=== PATIENT | female | born 1985 | race Caucasian/White ===

== ENCOUNTER 2023-12-05 13:52 | Outpatient (OUT) | payer OTHER, SELFPAY ==
[2023-12-06 05:07] LABS: HBsAg Screen Negative (Negative)
== END 2023-12-05 13:53 | disposition home or self-care (01) ==
PROVIDERS: Visit Provider Nurse Practitioner
DX: Z20.2 Contact with and (suspected) exposure to infections with a predominantly sexual mode of transmission (principal)
CPT/HCPCS: 36415; 87340

== ENCOUNTER 2024-08-31 09:47 | Outpatient (OUT) | payer OTHER, SELFPAY ==
[2024-08-31 10:15] LABS: Basophils Percent Auto 0.5 % (0.2-2.0); Eosinophils Percent Auto 0.9 % (0.9-7.0); Hematocrit 38.7 % (36.0-48.0); Hemoglobin 12.7 g/dL (12.0-16.0); Immature Granulocytes Abs Auto 0.01 10^3/uL (0.00-0.03); Immature Granulocytes Pct Auto 0.2 % (0.0-0.5); Lymphocytes Absolute Auto 2.1 10^3/uL (1.2-3.8); Lymphocytes Percent Auto 47.9 % (20.5-60.0); Mean Corpuscular HGB Conc 32.8 g/dL (29.9-35.2); Mean Corpuscular Hemoglobin 30.8 pg (26.7-34.0); Mean Corpuscular Volume 93.9 fL (81.0-99.0); Mean Platelet Volume 10.1 fL (9.5-13.5); Monocytes Absolute Auto 0.3 10^3/uL (0.3-0.8); Monocytes Percent Auto 6.5 % (1.7-12.0); Platelet Count 233 10^3/uL (150-450); Red Blood Count 4.12 10^6/uL (4.20-5.40); Red Cell Distribution Width 12.9 % (11.0-15.0); White Blood Count 4.4 10^3/uL (4.0-11.0)
[2024-08-31 10:34] LABS: INR 1.06; Partial Thromboplastin Time 27.9 sec (22.3-36.2); Prothrombin Time 11.2 sec (9.0-11.6)
[2024-08-31 10:46] LABS: Percent Iron Saturation 48.4 %
[2024-08-31 10:56] LABS: BUN Creatinine Ratio 13.1; Calcium 9.2 mg/dL (8.5-10.1); Carbon Dioxide 27.2 mmol/L (21.0-32.0); Chloride 105 mmol/L (98-107); Chol HDL Ratio 1.7; Cholesterol 137 mg/dL (<=200); Estimated GFR (African America >60 (>=60 mL/min/1.73m^2); Estimated GFR (Non-African Ame >60 (>=60 mL/min/1.73m^2); Glucose 84 mg/dL (74-106); HDL Cholesterol 79 mg/dL (40-60); Potassium 4.2 mmol/L (3.5-5.1); Sodium 140 mmol/L (136-145); Thyroid Stimulating Hormone 2.167 uIU/mL (0.358-3.740); Triglycerides 51 mg/dL (<=150); VLDL CHOLESTEROL 10.2 mg/dL
== END 2024-08-31 09:48 | disposition home or self-care (01) ==
LOC: LAB 09:51
PROVIDERS: PCP Nurse Practitioner; Visit Provider Nurse Practitioner
DX: Z00.00 Encounter for general adult medical examination without abnormal findings (principal); D64.9 Anemia, unspecified
CPT/HCPCS: 36415; 80048; 80061; 82728; 83540; 83550; 84443; 85025; 85610; 85730

== ENCOUNTER 2024-10-23 10:33 | Outpatient (OUT) | payer OTHER, SELFPAY ==
--- OUTSIDE RECORDS SUMMARY | 2024-10-23 10:37 | XMS_ITS | CCD ---
Author Organization [facility] Care Team Providers Care Laboratory Chemical Assistant Name Role Phone FRANCOIS, DR DAVID Gregg Primary Care Unavailable FRANCOIS, DR DAVID Gregg Admitting Unavailable FRANCOIS, DR DAVID Gregg Attending Unavailable FRANCOIS, DR DAVID Gregg Consulting Unavailable ADRIANNE COPPOLA Attending Unavailable ANAT, ADRIANNE Consulting Unavailable ADRIANNE COPPOLA Admitting Unavailable FRANCOIS, DR DAVID Gregg Primary Care Unavailable CAITLYN PRICE Consulting Unavailable PIPE JEWELL Consulting Unavailable FRANCOIS, DR DAVID Gregg Admitting Unavailable FRANCOIS, DR DAVID Gregg Attending Unavailable FRANCOIS, DR DAVID Gregg Consulting Unavailable FRANCOIS, DR DAVID Gregg Primary Care Unavailable ALIVIA, DR PIPE Gibbons Consulting Unavailable FRANCOIS, DR DAVID Gregg Primary Care Unavailable FRANCOIS, DR DAVID Gregg Admitting Unavailable FRANCOIS, DR DAVID Gregg Attending Unavailable FRANCOIS, DR DAVID Gregg Consulting Unavailable FRANCOIS, DR DAVID Gregg Primary Care Unavailable FRANCOIS, DR DAVID Gregg Admitting Unavailable FRANCOIS, DR DAVID Gregg Attending Unavailable FRANCOIS, DR DAVID Gregg Consulting Unavailable Allergies Allergy Classification Reported Allergen(s) Allergy Type Date of Onset Reaction(s) Facility (1 source) Amoxicillin Drug Allergy 1985 [facility] Rep[facility] (1 source) Penicillins Drug allergy (disorder) 1985 [facility] Rep[facility] Problems Active Problems Problem Classification Problem Date Documented Date Episodic/Chronic Anxiety disorders (1 source) Anxiety disorder, unspecified; Translations: [ANXIETY DISORDER UNSPECIFIED] Onset: 02-21-2022 Chronic Developmental disorders (1 source) Severe intellectual disabilities; Translations: [SEVERE INTELLECTUAL DISABILITIES] Onset: 02-21-2022 Chronic Disorders usually diagnosed in infancy, childhood, or adolescence (1 source) Autistic disorder; Translations: [AUTISTIC DISORDER] Onset: 02-21-2022 Chronic Genitourinary symptoms and ill-defined conditions (4 sources) Unspecified urinary incontinence; Translations: [UNSPECIFIED URINARY INCONTINENCE] Onset: 02-21-2022 Chronic Malaise and fatigue (1 source) Other fatigue; Translations: [OTHER FATIGUE] Onset: 02-25-2022 Episodic Nephritis; nephrosis; renal sclerosis (4 sources) 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; Translations: [ISOL PROTEINURIA W/DIFF ENDOCAP PGN] Onset: 03-16-2022 Chronic Other congenital anomalies (4 sources) Chromosomal abnormality, unspecified; Translations: [CHROMOSOMAL ABNORMALITY UNSPECIFIED] Onset: 02-15-2022 Chronic Other non-traumatic joint disorders (1 source) Pain in unspecified joint; Translations: [PAIN IN UNSPECIFIED JOINT] Onset: 02-25-2022 Episodic Past or Other Problems Problem Classification Problem Date Documented Date Episodic/Chronic Other nervous system disorders (4 sources) Unspecified abnormalities of gait and mobility; Translations: [UNS ABNORMALITIES GAIT AND MOBILITY] Onset: 12-07-2021 Episodic Other nervous system disorders (4 sources) Other abnormalities of gait and mobility; Translations: [OTHER ABNORMALITIES GAIT AND MOBILITY] Onset: 11-26-2021 Episodic Results Test Name Value Interpretation Reference Range Facil ity CRPon 03-16-2022 CRP 0.8 mg/dL Normal <=1.0 [facility] Comment on above: Performed By: #### U MICRO, UARMICR #### [facility] Laboratory [address] [address] [address] Rosalind Allred CULTURE URINEon 02-23-2022 CULTURE URINE Isolate 1 Escherichia coli >100,000 cfu/ml of ORGANISM 1 Escherichia coli ANTIBIOTIC M.I.C RX STATUS Ampicillin >=32 R F Ampicillin/Sulbactam 16 I F Piperacillin/Tazobact am <=4 S F Cefazolin <=4 S F Ceftazidime <=1 S F Ceftriaxone <=1 S F Ertapenem <=0.5 S F Imipenem <=0.25 S F Amikacin <=2 S F Gentamicin <=1 S F Tobramycin <=1 S F Ciprofloxacin >=4 R F Levofloxacin >=8 R F Nitrofurantoin <=16 S F Trimethoprim/Sulfamet hoxazole <=20 S F Normal [facility] Comment on above: Performed By: #### U RCX #### [facility] Laboratory [address] [address] [address] Rosalind Allred RHEUMATOID FACTORon 02-23-20 22 RA Latex Turbid. 14.8 IU/mL Critically high <14.0 [facility] Comment on above: Performed By: #### U MICRO, UARMICR #### [facility] Laboratory [address] [place] [address] Dr. Rosalind Allred UA (CLEAN/CATCH) MICROSCOPIC IF INDICATEon 02-21-2022 Bilirubin Ql (U) Negative Normal NEGATIVE [facility] Comment on above: Performed By: #### U MICRO, UARMICR #### [facility] Laboratory [address] [place] [address] Dr. Rosalind Allred Clarity (U) CLEAR Normal CLEAR [facility] Comment on above: Performed By: #### U MICRO, UARMICR #### [facility] Laboratory [address] [place] [address] Dr. Rosalind Allred Color (U) YELLOW Normal YELLOW [facility] Comment on above: Performed By: #### U MICRO, UARMICR #### [facility] Laboratory [address] [place] [address] Dr. Rosalind Allred Glucose Ql (U) 250 mg/dl Abnormal NEGATIVE [facility] Comment on above: Performed By: #### U MICRO, UARMICR #### [facility] [address] [place] [address] Dr. Rosalind Allred Hemoglobin Ql (U) TRACE-INTACT Abnormal NEGATIVE [facility] Comment on above: Performed By: #### U MICRO, UARMICR #### [facility] [address] [place] [address] Dr. Rosalind Allred Ketones Ql (U) 15 mg/dl Abnormal NEGATIVE [facility] Comment on above: Performed By: #### U MICRO, UARMICR #### [facility] [address] [place] [address] Dr. Rosalind Allred LEUKOCYTES Negative Normal NEGATIVE [facility] Comment on above: Performed By: #### U MICRO, UARMICR #### [facility] [address] [place] [address] Dr. Rosalind Allred Nitrite Ql (U) Positive Abnormal NEGATIVE [facility] Comment on above: Performed By: #### U MICRO, UARMICR #### [facility] [address] [address] [address] Rosalind Allred pH (U) 5.5 [pH] Normal 5-9 [facility] Comment on above: Performed By: #### U MICRO, UARMICR #### [facility] [address] [address] [address] Rosalind Allred SPEC GRAVITY >=1.030 Abnormal 1.005-<=1.025 [facility] Comment on above: Performed By: #### U MICRO, UARMICR #### [facility] [address] [place] [address] Dr. Rosalind Allred UA PROTEIN 30 mg/dl Abnormal NEGATIVE/ TRACE [facility] Comment on above: Performed By: #### U MICRO, UARMICR #### [facility] [address] [place] [address] Dr. Rosalind Allred UR MICRO IND INDICATED Normal [facility] Comment on above: Performed By: #### U MICRO, UARMICR #### [facility] [address] [place] [address] Dr. Rosalind Allred Urobilinogen Qn (U) 0.2 {Jc'U}/dL Normal 0.2 - 1. 0 [facility] Comment on above: Performed By: #### U MICRO, UARMICR #### [facility] [address] [place] [address] Dr. Rosalind Allred URINE MICROSCOPIC ONLYon BACTERIA MODERATE Abnormal NONE SEEN [facility] Comment on above: Performed By: #### U MICRO, UARMICR #### [facility] [address] [place] [address] Dr. Rosalind Allred Bacteria identified Cx Nom (U) CX ALREADY ORDERED Normal [facility] Comment on above: Performed By: #### U MICRO, UARMICR #### [facility] [address] [place] [address] Dr. Rosalind Allred CAST SEEN Abnormal NONE SEEN [facility] Comment on above: Performed By: #### U MICRO, UARMICR #### [facility] [address] [place] [address] Dr. Rosalind Allred Crystals LM Nom (Urine sed) NONE SEEN Normal NONE SEEN [facility] Comment on above: Performed By: #### U MICRO, UARMICR #### [facility] [address] [place] [address] Dr. Rosalind Allred Epithelial cells LM Ql (Urine sed) MANY Abnormal NONE SEEN /RARE [facility] Comment on above: Performed By: #### U MICRO, UARMICR #### [facility] [address] [place] [address] Dr. Rosalind Allred HYALINE CAST FEW Normal [facility] Comment on above: Performed By: #### U MICRO, UARMICR #### [facility] [address] [place] [address] Dr. Rosalind Allred MUCOUS TRACE Abnormal NONE SEEN [facility] Comment on above: Performed By: #### U MICRO, UARMICR #### [facility] [address] [place] [address] Dr. Rosalind Allred RBC 0-2 Normal 0-2 [facility] Comment on above: Performed By: #### U MICRO, UARMICR #### [facility] [address] [place] [address] Dr. Rosalind Allred WBC 2-5 Abnormal NONE SEEN [facility] Comment on above: Performed By: #### U MICRO, UARMICR #### [facility] [address] [place] [address] Dr. Rosalind Allred CBC AUTO DIFFon 02-15-2022 BASO # 0.0 103/ul Normal 0.0-0.1 [facility] Comment on above: Performed By: #### U MICRO, UARMICR #### [facility] [address] [place] [address] Dr. Rosalind Allred Basophils/100 WBC (Bld) 0.2 % Normal 0.2-2.0 [facility] Comment on above: Performed By: #### U MICRO, UARMICR #### [facility] [address] [place] [address] Dr. Rosalind Allred EO # 0.0 103/ul Normal 0.0-0.7 [facility] Comment on above: Performed By: #### U MICRO, UARMICR #### [facility] [address] [place] [address] Dr. Rosalind Allred Eosinophils/100 WBC (Bld) 0.4 % Critically low 0.9-7.0 [facility] Comment on above: Performed By: #### U MICRO, UARMICR #### [facility] [address] [place] [address] Dr. Rosalind Allred Erythrocyte distribution width (RBC) [Ratio] 13.9 % Normal 11.0-15.0 [facility] Comment on above: Performed By: #### U MICRO, UARMICR #### [facility] [address] [place] [address] Dr. Rosalind Allred Hematocrit (Bld) [Volume fraction] 34.5 % Critically low 36.0-48.0 [facility] Comment on above: Performed By: #### U MICRO, UARMICR #### [facility] [address] [place] [address] Dr. Rosalind Allred Hemoglobin (Bld) [Mass/Vol] 11.3 g/dL Critically low 12.0-16.0 [facility] Comment on above: Performed By: #### U MICRO, UARMICR #### [facility] [address] [place] [address] Dr. Rosalind Allred IG # 0.05 10e3/ul Critically high 0.00-0.03 [facility] Comment on above: Performed By: #### U MICRO, UARMICR #### [facility] [address] [place] [address] Dr. Rosalind Allred IG % 0.5 % Normal 0.0-0.5 [facility] Comment on above: Performed By: #### U MICRO, UARMICR #### [facility] [address] [place] [address] Dr. Rosalind Allred LYMPH # 1.9 103/ul Normal 1.2-3.8 [facility] Comment on above: Performed By: #### U MICRO, UARMICR #### [facility] [address] [address] [address] Rosalind Allred Lymphocytes/100 WBC (Bld) 17.9 % Critically low 20.5-60.0 [facility] Comment on above: Performed By: #### U MICRO, UARMICR #### [facility] [address] [place] [address] Dr. Rosalind Allred MANUAL DIFF REQ NO Normal [facility] Comment on above: Performed By: #### U MICRO, UARMICR #### [facility] [address] [place] [address] Dr. Rosalind Allred MCH (RBC) [Entitic mass] 30.2 pg Normal 26.7-34.0 [facility] Comment on above: Performed By: #### U MICRO, UARMICR #### [facility] [address] [place] [address] Dr. Rosalind Allred MCHC (RBC) [Mass/Vol] 32.8 g/dL Normal 29.9-35.2 [facility] Comment on above: Performed By: #### U MICRO, UARMICR #### [facility] [address] [place] [address] Dr. Rosalind Allred MCV (RBC) [Entitic vol] 92.2 fL Normal 81.0-99.0 [facility] Comment on above: Performed By: #### U MICRO, UARMICR #### [facility] [address] [place] [address] Dr. Rosalind Allred MONO # 0.9 103/ul Critically high 0.3-0.8 [facility] Comment on above: Performed By: #### U MICRO, UARMICR #### [facility] [address] [place] [address] Dr. Rosalind Allred Monocytes/100 WBC (Bld) 8.7 % Normal 1.7-12.0 [facility] Comment on above: Performed By: #### U MICRO, UARMICR #### [facility] [address] [place] [address] Dr. Rosalind Allred NEUT # 7.5 103/ul Critically high 1.4-6.5 [facility] Comment on above: Performed By: #### U MICRO, UARMICR #### [facility] [address] [address] [address] Rosalind Allred Neutrophils/100 WBC (Bld) 72.3 % Normal 43.0-75.0 [facility] Comment on above: Performed By: #### U MICRO, UARMICR #### [facility] [address] [address] [address] Rosalind Allred Platelet mean volume (Bld) [Entitic vol] 9.5 fL Normal 9.5-13.5 [facility] Comment on above: Performed By: #### U MICRO, UARMICR #### [facility] [address] [place] [address] Dr. Rosalind Allred PLT 219 103/ul Normal 150-450 [facility] Comment on above: Performed By: #### U MICRO, UARMICR #### [facility] [address] [address] [address] Rosalind Allred RBC 3.74 106/ul Critically low 4.20-5.40 [facility] Comment on above: Performed By: #### U MICRO, UARMICR #### [facility] [address] [address] [address] Rosalind Allred WBC 10.3 103/ul Normal 4.0-11.0 [facility] Comment on above: Performed By: #### U MICRO, UARMICR #### [facility] [address] [place] [address] Dr. Rosalind Allred CRPon 02-15-2022 CRP 7.9 mg/dL Critically high <=1.0 [facility] Comment on above: Performed By: #### U MICRO, UARMICR #### [facility] [address] [address] [address] Rosalind Allred PROF 14(COMP METB)on 022 Albumin [Mass/Vol] 3.3 g/dL Critically low 3.4-5.0 [facility] Comment on above: Performed By: #### T SH, CRP, CMP #### [facility] [address] [address] [address] Rosalind Allred Albumin/Globulin [Mass ratio] 0.9 {ratio} Normal [facility] Comment on above: Performed By: #### T SH, CRP, CMP #### [facility] [address] [address] [address] Rosalind Allred ALP [Catalytic activity/Vol] 80 U/L Normal 46-116 [facility] Comment on above: Performed By: #### T SH, CRP, CMP #### [facility] [address] [place] [address] Dr. Rosalind Allred ALT [Catalytic activity/Vol] 25 U/L Normal 14-59 [facility] Comment on above: Performed By: #### T SH, CRP, CMP #### [facility] [address] [place] [address] Dr. Rosalind Allred Anion gap [Moles/Vol] 13.8 mmol/L Normal [facility] Comment on above: Performed By: #### T SH, CRP, CMP #### [facility] [address] [place] [address] Dr. Rosalind Allred AST [Catalytic activity/Vol] 11 U/L Critically low 15-37 [facility] Comment on above: Performed By: #### T SH, CRP, CMP #### [facility] [address] [place] [address] Dr. Rosalind Allred Bilirubin [Mass/Vol] 0.3 mg/dL Normal 0.2-1.0 [facility] Comment on above: Performed By: #### T SH, CRP, CMP #### [facility] [address] [place] [address] Dr. Rosalind Allred Calcium [Mass/Vol] 8.8 mg/dL Normal 8.5-10.1 [facility] Comment on above: Performed By: #### T SH, CRP, CMP #### [facility] [address] [place] [address] Dr. Rosalind Allred Chloride [Moles/Vol] 104 mmol/L Normal 98-107 [facility] Comment on above: Performed By: #### T SH, CRP, CMP #### [facility] [address] [place] [address] Dr. Rosalind Allred CO2 [Moles/Vol] 24.9 mmol/L Normal 21.0-32.[address] [facility] Comment on above: Performed By: #### T SH, CRP, CMP #### [facility] [address] [address] [address] Rosalind Allred Creatinine [Mass/Vol] 0.41 mg/dL Critically low 0.55-1.02 [facility] Comment on above: Performed By: #### T SH, CRP, CMP #### [facility] [address] [place] [address] Dr. Rosalind Allred EGFR-AF CITIZEN OF [place] >60 Normal >=[address] [facility] Comment on above: Performed By: #### T SH, CRP, CMP #### [facility] [address] [place] [address] Dr. Rosalind Allred EGFR-NON AF CITIZEN OF [place] >60 Normal >=60 [facility] Comment on above: Performed By: #### T SH, CRP, CMP #### [facility] [address] [place] [address] Dr. Rosalind Allred Globulin (S) [Mass/Vol] 3.7 g/dL Normal [facility] Comment on above: Performed By: #### T SH, CRP, CMP #### [facility] [address] [place] [address] Dr. Rosalind Allred Glucose [Mass/Vol] 86 mg/dL Normal 74-106 [facility] Comment on above: Performed By: #### T SH, CRP, CMP #### [facility] [address] [place] [address] Dr. Rosalind Allred Potassium [Moles/Vol] 3.7 mmol/L Normal 3.5-5.1 [facility] Comment on above: Performed By: #### T SH, CRP, CMP #### [facility] [address] [place] [address] Dr. Rosalind Allred Protein [Mass/Vol] 7.0 g/dL Normal 6.4-8.2 [facility] Comment on above: Performed By: #### T DAVID CRP, CMP #### [facility] [address] [place] [address] Dr. Rosalind Allred Sodium [Moles/Vol] 139 mmol/L Normal 136-145 [facility] Comment on above: Performed By: #### T DAVID CRP, CMP #### [facility] [address] [place] [address] Dr. Rosalind Allred Urea nitrogen [Mass/Vol] 9.0 mg/dL Normal 7.0-18.0 [facility] Comment on above: Performed By: #### T DAVID CRP, CMP #### [facility] [address] [place] [address] Dr. Rosalind Allred Urea nitrogen/Creatinine [Mass ratio] 22.0 mg/mg Normal [facility] Comment on above: Performed By: #### T DAVID CRP, CMP #### [facility] [address] [place] [address] Dr. Rosalind Allred TSHon 02-15-2022 TSH 1.373 uIU/mL Normal 0.358-3.740 [facility] Comment on above: Performed By: #### T DAVID CRP, CMP #### [facility] [address] [place] [address] Dr. Rosalind Allred TSH RANGE SEE BELOW Normal [facility] Comment on above: Result Comment: <0.3 4 UIU/ml HYPERTHYROID 0.34-5.60 UIU/ml EUTHYROID >5.60 UIU/ml HYPOTHYROID Performed By: #### T DAVID CRP, CMP #### [facility] [address] [place] [address] Dr. Rosalind Allred NM BONE SCAN LIMITon 022 NM BONE SCAN LIMIT EXAMINATION: NM BONE SCAN LIMIT HISTORY: Frontal gait disorder COMPARISON: No relevant comparison available. TECHNIQUE: After obtaining the patient's consent, 24.3 mCi Tc-99m MDP was injected intravenously. Images were obtained approximately three hours later. FINDINGS: REGION IMAGED: Whole body excluding the head ABNORMALITIES: Moderately dilated urinary bladder. Single area of increased activity identified in the mid left inferior pubic ramus OTHER: Negative. IMPRESSION: Small area of increased activity inferior left pubic ramus. Consider a fracture Moderate distention of the urinary bladder despite the patient having voided just before the procedure, clinically correlate to exclude bladder dysfunction or outlet obstruction. Electronically authenticated by: PIPE BUNCH Date: 2021-12-07 16:11 Normal [facility] XR ANKLE RT MIN 3 VIEWSon XR ANKLE RT MIN 3 VIEWS EXAM: XR TIB_FIB RT 2V, XR ANKLE RT MIN 3 VIEWS, XR FOOT RT MIN 3 VIEWS HISTORY: Swelling and redness COMPARISON: None. TECHNIQUE: 2 views of the tibia and fibula 3 views of the ankle and 2 views of the foot FINDINGS: Questionable lateral ankle soft tissue edema. No visualized fracture, dislocation or subluxation. Mid foot sag. Poorly evaluated irregularity of the talocrural articulation on the lateral views are presented. Lateral angulation of the phalanges. Short fourth metatarsal, a normal anatomic variant. 10 and 2 mm plantar soft tissue calcifications beneath the first proximal phalanx IMPRESSION: Questionable lateral ankle soft tissue edema. No visualized acute osseous abnormality. Mid foot sag. Plantar soft tissue calcification beneath the first proximal phalanx Electronically authenticated by: PIPE JEWELL Date: 2021-11-26 20:05 Normal [facility] XR HIPS JOE 5V W PELVISon XR HIPS JOE 5V W PELVIS XR HIPS JOE 5V W PELVIS: HISTORY: Pain Pain COMPARISON: None available. TECHNIQUE: 5 radiographic view(s) obtained. FINDINGS: BONES/JOINT SPACES: No definitive acute fracture or dislocations are identified in either hip or bony pelvis. The joint spaces are well-maintained. Pelvic ring structures are maintained. SOFT TISSUES: The soft tissues are unremarkable. IMPRESSION: No definitive acute osseous injury of the bony pelvis or either hip. Electronically authenticated by: CAITLYN PRICE Date: 2021-11-26 21:20 Normal [facility] Encounters Encounter Date Encounter Type Care Provider Facility Start: 03-16-2022 End: 03-17-[address] DAVID PARRISH Facility:[facility] Start: 02-21-2022 End: 02-22-[address] DAVID PARRISH Facility:[facility] Start: 02-15-2022 End: 02-16-[address] DAVID PARRISH Facility:[facility] Start: 12-07-2021 End: 12-08-[address] DAVID PARRISH Facility:[facility] Start: 11-26-2021 End: 11-27-2021 ambulatory ADRIANNE COPPOLA Facility:[facility] Payers Date Payer Category Payer Unknown [id number] 2.16.84 [id number] 1985 Unknown [id number] 2.16.84 [id number] 1985 Unknown [id number] 2.16.84 [id number] 1985 Unknown [id number] 2.16.84 [id number] 1985 Unknown [id number] 2.16.84 [id number] 1959 Unknown [id number] Summary Purpose Family History No Family History Records Found Advance Directives No Advanced Directives Records Found Additional Source Comments INFORMATION SOURCE (unrecogn ized section and content) DATE CREATED AUTHOR 03/19/2022 [facility] FOR RECORDS PERTAINING TO PATIENTS WHO ARE OR HAVE BEEN ENROLLED IN A CHEMICAL DEPENDENCY/SUBSTANCEABUSE PROGRAM, SOME INFORMATION MAY BE OMITTED. This clinical summary was aggregated from multiple sources. Caution should be exercised in using it in the provision of clinical care. This summary normalizes information from multiple sources, and as a consequence, information in this document may materially change the coding, format and clinical context of patient data. In addition, data may be omitted in some cases. CLINICAL DECISIONS SHOULD BE BASED ON THE PRIMARY CLINICAL RECORDS. [facility] [email or web address] [facility]. provides no warranty or guarantee of the accuracy or completeness of information in this document.
[2024-10-24 08:10] LABS: Vitamin B12 221 pg/mL (232-1245)
== END 2024-10-23 10:34 | disposition home or self-care (01) ==
LOC: LAB 10:34
PROVIDERS: PCP Nurse Practitioner; Visit Provider Nurse Practitioner
DX: R53.1 Weakness (principal); R53.83 Other fatigue
CPT/HCPCS: 36415; 82306; 82607

== ENCOUNTER 2024-10-30 09:10 | Outpatient (RCR) | payer OTHER, SELFPAY | END 2024-12-05 07:13 | disposition home or self-care (01) | LOC: PT 09:10 | PROVIDERS: PCP Nurse Practitioner; Visit Provider Nurse Practitioner | DX: M25.562 Pain in left knee (principal); Z68.1 Body mass index [BMI] 19.9 or less, adult; R26.89 Other abnormalities of gait and mobility; M25.561 Pain in right knee | CPT/HCPCS: 97110; 97162 ==

== ENCOUNTER 2025-09-05 09:46 | Outpatient (OUT) | payer OTHER, SELFPAY ==
--- OUTSIDE RECORDS SUMMARY | 2024-08-13 06:30 | XMS_ITS ---
Author Organization [facility] Address [address] [place] [address] [address] [place] [place] [address] Care Team Providers Care Hearing Aid Fitter Name Role Phone Britton Carlson Unavailable [phone] Nola Aguilar Unavailable Unavailable REASON FOR VISIT rfc Encounters Encounter Location Date Provider Diagnosis [facility] [address] [place] [address] [place] [address] 08/13/2024 Britton Carlson Plan Of Treatment Next Appt Details Provider Name:Britton silveira, 11/28/2025 10:15:00 AM, [address] [place] [address] Dr [address], [address], [place], [address], Progress Notes * Yasmine ROTHMAN NDOB:[birth year] (40 yo F)Acc No.[id number]:08/13/2024 Patient:?Yasmine Rothman :?SAMANTHA MarceloMDOB:1985???Age:39 Y???Sex: FemaleDate:4Phone:[phone]:[address] [place], [place] [phone] Subjective: * Chief Complaints: * R fc * Electronic signature of Britton Carlson DPM on 09/05/2025 at 09:50 AM ESTSign off status: Pending * Provider: Tgire Carlson DPM Date: 10/13/2023 Generated for Printing/Faxing/eTransmitting on:?09/05/2025 09:50 AM EST
--- OUTSIDE RECORDS SUMMARY | 2025-08-29 05:00 | XMS_ITS ---
Author Organization [facility] Address [address] [place] [address] [place] [address] Care Team Providers Care Junk Removal Specialist Name Role Phone Britton Carlson Unavailable [phone] Nola Aguilar Unavailable Unavailable Allergies Allergen (clinical drug ingredient) Drug/Non Drug Allergy documented on EMR Reaction Allergy Type Onset Date Status amoxicillin Amoxicillin hives Drug Allergy ActivepenicillaminePenicillaminehivesDrug AllergyActive REASON FOR VISIT rfc Medications Medication SIG (Take, Route, Frequency, Duration) Notes Start Date End Date Status Depo-Provera ActiveSelenium Sulfide 2.25 % Shampoo1 application to scalp ExternallyActive AcetaminophenprnActiveLoratadine 10 MG Tablet1 tablet Orally Once a dayprnActive ibuprofenprnActive Social History Social History Social HistorySocial InfoQuestionAnswerNotesalcoholDo you use alcohol?Does not drink alcohol Encounters Encounter Location Date Provider Diagnosis [facility] [address] [place] [address] [place] [address] 08/29/2025 Britton Carlson Pain in right foot M79.671 ; Pain in right toe(s) M79.674 ; Pain in left toe(s) M79.675 and Tinea unguium B35.1 Assessments Encounter Date Diagnosis (ICD Code) Assessment Notes Treatment Notes Treatment Clinical Notes Section Notes 08/29/2025 Pain in right foot (ICD-10 - M79 .671) 08/29/2025Pain in right toe(s) (ICD-10 - M79.674)08/29/2025Pain in left toe(s) (ICD-10 - M79.675)08/29/2025Tinea unguium (ICD-10 - B35.1) Plan Of Treatment Next Appt Details Follow Up: 3 Months, Reason: rfc Provider Name:Britton silveira, 11/28/2025 10:15:00 AM, [address] [place], [address], [place], [address], Procedure Notes * CategorySub-CategoryDetailNotesDebridement of ToenailsManuallydebrided nails 1-5 left and 2-5 right in thickness and in lengthMechanicallydebrided nails 1- 5 left and 2-5 right in thickness and in length with a dremel History and Physical Notes * HPI (History of Present Illness) CategorySub-CategoryDetailNotesCategory NotesRight Cherise is a 40 y/o female who presetns to have her toenails trimmed. Pt. last saw VLAD Aguilar on 02/27/2025. Examination CategorySub-CategoryDetailNotesCategory NotesVascularDorsalis Pedis Pulse2/4 palpable bilateralPosterior Tibial Pulse2/4 palpable bilateralCapillary Refill< 3 seconds digits 1-5 bilateral bilateralTemperature Gradientwarm to warm from tibial tuberosity to dorsum of foot bilateralEdemanone bilateral foot Varicositiesabsent bilateral feet legsHair growthmoderate bilateral feet NeurologicDeep Tendon ReflexAll epicrietic sensation intact bilateral feet. DermatologicSkinintegrity is within normal limits with no breakdown or ulcerations noted bilateral footNail Pathologydigital nails 1-5 left and digital nail 2 digital nail 3 digital nail 4 digital nail 5 right is yellow crumbly thickened elongated subungual debris and painful upon palpationOrthopedicAnkle Joint ROMnormal with no decrease in range of motion or crepitus noted bilateral Pt. has shortened 4th digit bilateral. Breachymetatarsia.STJ ROMno evidence of pain to ROM or crepitus noted bilateralLisfrancs Joint ROMnormal bilateralFirst MPJ ROMnormal ROM with no pain or crepitus noted bilateral Progress Notes * Yasmine ROTHMAN NDOB:[birth year] (40 yo F)Acc No.[id number]:08/29/2025 Patient:?Yasmine Rothman :?SAMANTHA MarceloMDOB:1985???Age:40 Y???Sex: FemaleDate:08/29/2025Phone:[phone]:[address] [address], [facility] Subjective: * Chief Complaints: * R fc * HPI: ???Right Foot:?This is a 40 y/o female who presetns to have her toenails trimmed. Pt. last saw VLAD Aguilar on 02/27/2025. * Medical History: Mentally disabled Anxiety Medical History Verified * Surgical History: Denies Past Surgical History.? * Family History: N on-Contributory.. * Social History: T obacco use P atient is a: non smoker. A lcohol D o you use alcohol? D oes not drink alcohol. Social History Verified. * Medications: T akingSelenium Sulfide 2.25 % Shampoo 1 application to scalp Externally ibuprofen , Notes to Pharmacist: prnLoratadine 10 MG Tablet 1 tablet Orally Once a day , Notes to Pharmacist: prnAcetaminophen , Notes to Pharmacist: prnDepo-Provera Medication List reviewed and reconciled with the patientTaking Selenium Sulfide 2.25 % Shampoo 1 application to scalp Externally Taking ibuprofen , Notes to Pharmacist: prnTaking Loratadine 10 MG Tablet 1 tablet Orally Once a day , Notes to Pharmacist: prnTaking Acetaminophen , Notes to Pharmacist: prnTaking Depo-Provera Medication List reviewed and reconciled with the patient * Allergies: P enicillamine: hivesAmoxicillin: hivesyesAllergies Verified. Objective: * Examination: ???Vascular: ?Dorsalis Pedis Pulse?2/4 palpable bilateral .?Posterior Tibial Pulse?2/4 palpable bilateral .?Capillary Refill?< 3 seconds digits 1-5 bilateral bilateral .?Temperature Gradient?warm to warm from tibial tuberosity to dorsum of foot bilateral .?Edema?none bilateral foot .?Varicosities?absent bilateral feet legs.?Hair growth?moderate bilateral feet.?Dermatologic: ?Skin?integrity is within normal limits with no breakdown or ulcerations noted bilateral foot .?Nail Pathology?digital nails 1-5 left and digital nail 2 digital nail 3 digital nail 4 digital nail 5 right is yellow crumbly thickened elongated subungual debris and painful upon palpation .?Neurologic: ?Deep Tendon Reflex? All epicrietic sensation intact bilateral feet. .?Orthopedic: ?Ankle Joint ROM?normal with no decrease in range of motionor crepitus noted bilateral .?STJ ROM?no evidence of pain to ROM or crepitus noted bilateral .?Lisfrancs Joint ROM?normal bilateral .?First MPJ ROM?normal ROM with no pain or crepitus noted bilateral .?Pt. has shortened 4th digit bilateral. Breachymetatarsia. Assessment: * Assessment: 1.?Pain in right foot - M79.671 (Primary)???2.?Pain in right toe(s) - M79.6 74???3.?Pain in left toe(s) - M79.675???4.?Tinea unguium - B35.1??? Plan: * Procedures: ???Debridement of Toenails:?Manually?debrided nails 1-5 left and 2-5 right in thickness and in length.?Mechanically?debrided nails 1-5 left and 2-5 right in thickness and in length with a dremel.? * Procedure Codes: 1 1721 DEBRIDE NAIL, 6 OR MORE * Follow Up: 3 Months (Reason: [facility]) Billing Information: * Procedure Codes: 87100 DEBRIDE NAIL, 6 OR MORE. * ign off status: Completed true * Provider: Tigre Carlson DPM Date: 10/30/2024 Generated for Printing/Faxing/eTransmitting on:?09/05/2025 09:51 AM EST
--- OUTSIDE RECORDS SUMMARY | 2025-09-05 09:51 | XMS_ITS | Patient Health Record ---
Author Organization [facility] Address [address] [place] [address] [place] [address] Care Team Providers Care Resource Forester Name Role Phone Britton Carlson Unavailable [phone] Nola Aguilar Unavailable Unavailable Allergies Allergen (clinical drug ingredient) Drug/Non Drug Allergy documented on EMR Reaction Allergy Type Onset Date Status amoxicillin Amoxicillin hives Drug Allergy ActivepenicillaminePenicillaminehivesDrug AllergyActive Reason For Referral No Information Medications Medication SIG (Take, Route, Frequency, Duration) Notes Start Date End Date Status Depo-Provera ActiveSelenium Sulfide 2.25 % Shampoo1 application to scalp ExternallyActive AcetaminophenprnActiveLoratadine 10 MG Tablet1 tablet Orally Once a dayprnActive ibuprofenprnActive Social History Social History Social HistorySocial InfoQuestionAnswerNotesalcoholDo you use alcohol?Does not drink alcohol Problems Problem Type SNOMED Code ICD Code Onset Dates Problem Status W/U Status Risk Notes Problem Plantar wart (43576106) Plantar wart (B07 .0) ActiveconfirmedProblemPain in right foot (912928979367705)Pain in right foot (M79.671)ActiveconfirmedProblemPain in limb (78458259)Pain in right toe(s) (M79.674)ActiveconfirmedProblemPain in limb (16896367)Pain in left toe(s) (M79.675)ActiveconfirmedProblemTinea unguium (718671170)Tinea unguium (B35.1) Activeconfirmed Vital Signs Height 61 in 05/30/2025 [id number] lbs6296ACN3404/12/2025 Encounters Encounter Location Date Provider Diagnosis [facility] [address] [place] [address] 11/18/2024 Britton Lesnak Pain in right foot M79.671 ; Pain in right toe(s) M79.674 ; Pain in left toe(s) M79.675 and Tinea unguium B35.[address] [facility] [address] [place] [address] 03/03/2025 Britton Lesnak Pain in right foot M79.671 ; Pain in right toe(s) M79.674 ; Pain in left toe(s) M79.675 and Tinea unguium B35.1 [facility] [address] [place] [address] [place] [address] 05/30/2025 Britton Lesnak Pain in right foot M79.671 ; Pain in right toe(s) M79.674 ; Pain in left toe(s) M79.675 and Tinea unguium B35.1 [facility] [address] [place] [address] [place] [address] 08/29/2025 Britton Lesnak Pain in right foot M79.671 ; Pain in right toe(s) M79.674 ; Pain in left toe(s) M79.675 and Tinea unguium B35.1 Assessments Encounter Date Diagnosis (ICD Code) Assessment Notes Treatment Notes Treatment Clinical Notes Section Notes 11/18/2024 Pain in right foot (ICD-10 - M79 .671) 05/30/2025Pain in right foot (ICD-10 - M79.671)08/29/2025Pain in right foot (ICD-10 - M79.671)03/03/2025Pain in right foot (ICD-10 - M79.671)03/03/2025Pain in right toe(s) (ICD-10 - M79.674)08/29/2025Pain in right toe(s) (ICD-10 - M79.674)05/30/2025Pain in right toe(s) (ICD-10 - M79.674)11/18/2024Pain in right toe(s) (ICD-10 - M79.674)11/18/2024Pain in left toe(s) (ICD-10 - M79.675) 05/30/2025Pain in left toe(s) (ICD-10 - M79.675)08/29/2025Pain in left toe(s) (ICD-10 - M79.675)03/03/2025Pain in left toe(s) (ICD-10 - M79.675)03/03/2025 Tinea unguium (ICD-10 - B35.1)08/29/2025Tinea unguium (ICD-10 - B35.1)05/30/2025 Tinea unguium (ICD-10 - B35.1)11/18/2024Tinea unguium (ICD-10 - B35.1) Plan Of Treatment Next Appt Details Provider Name:Britton silveira, 11/28/2025 10:15:00 AM, [facility], [address], [place], [address], Insurance Providers Payer Name Payer Address Payer Phone Subscriber Number Group Number Insured Name Patient Relationship to Insured Coverage Start Date Coverage End Date [facility] [address] [place] [address] [id number], MackenzieSelf - patient is the insured Medical (General) History Medical History History ICD Code mentally disabled anxietySurgical History Surgery Date(Month/Year)
--- OUTSIDE RECORDS SUMMARY | 2025-09-05 09:51 | XMS_ITS | Clinical Summary ---
Author Organization [facility] Address [address] [facility] [place] [address] Care Team Providers Care E Learning Coordinator Name Role Phone Unavailable Primary Care Provider Unavailabl e Source Comments The following information is NOT included in Care Everywhere downloads:Psychiatric notes, ECG results, Cardiac Rehab notes, Pulmonary Function notes, data from SmartForms (includes but not limited toPregnancy data,audiograms, eye exams, pre-surgical evaluation notes, well-child exam data).[facility] Social History Tobacco UseTypesPacks/DayYears UsedDateSmoking Tobacco: Never Assessed CommentsUnknownSex and Gender InformationValueDate RecordedSex Assigned at Not on fileLegal IqfSksiod74/16/2024 2:15 PM EDTGender IdentityNot on fileSexual OrientationNot on file Plan of Treatment Health MaintenanceDue DateLast DoneCommentsHIV Test2000Hepatitis C Ervrmaey54/30/2003Tdap Glrbmma8705/17/2003Hepatitis A (HAV) Vaccine (optional start 19+ years)2004Hepatitis B (HBV) Vaccine (1 of 3 - 19+ 3-dose series) 2004Pap Smear2006HPV Vaccine (optional start 27-45 years)2012 Goonrzsrcei30/30/2025OVID-19 Vaccine (3 - 2024-26 season)502/09/2020, 09/21/2020Influenza Vaccine (#1)2025Shingles (RZV) Vaccine (1 of 2) 2035Pneumococcal Vaccine(s)Aged OutNo longer eligible based on patient's age to complete this topic Insurance
[2025-09-05 10:12] LABS: Hematocrit 39.2 % (36.0-48.0); Hemoglobin 12.8 g/dL (12.0-16.0); Immature Granulocytes Abs Auto 0.01 10^3/uL (0.00-0.03); Immature Granulocytes Pct Auto 0.2 % (0.0-0.5); Lymphocytes Absolute Auto 2.3 10^3/uL (1.2-3.8); Mean Corpuscular HGB Conc 32.7 g/dL (29.9-35.2); Mean Corpuscular Hemoglobin 30.5 pg (26.7-34.0); Mean Corpuscular Volume 93.6 fL (81.0-99.0); Platelet Count 264 10^3/uL (150-450); Red Blood Count 4.19 10^6/uL (4.20-5.40); White Blood Count 5.5 10^3/uL (4.0-11.0)
[2025-09-05 11:20] LABS: Alanine Aminotransferase 34 U/L (14-59); Albumin Globulin Ratio 1.3; Albumin Level 4.0 g/dL (3.4-5.0); Alkaline Phosphatase 70 U/L (46-116); Anion Gap 9.9; Aspartate Amino Transferase 10 U/L (15-37); Blood Urea Nitrogen 14.0 mg/dL (7.0-18.0); Calcium 9.4 mg/dL (8.5-10.1); Carbon Dioxide 27.8 mmol/L (21.0-32.0); Chloride 105 mmol/L (98-107); Cholesterol 130 mg/dL (<=200); Estimated GFR (African America >60 (>=60 mL/min/1.73m^2); Estimated GFR (Non-African Ame >60 (>=60 mL/min/1.73m^2); Globulin 3.1 g/dL; Glucose 78 mg/dL (74-106); HDL Cholesterol 73 mg/dL (40-60); Potassium 3.7 mmol/L (3.5-5.1); Sodium 139 mmol/L (136-145); Thyroid Stimulating Hormone 0.939 uIU/mL (0.358-3.740); Total Protein 7.1 g/dL (6.4-8.2); Triglycerides 46 mg/dL (<=150); VLDL CHOLESTEROL 9.2 mg/dL
[2025-09-06 04:07] LABS: Vitamin B12 >2000 pg/mL (232-1245)
== END 2025-09-05 09:47 | disposition home or self-care (01) ==
LOC: LAB 09:48
PROVIDERS: PCP Nurse Practitioner; Visit Provider Nurse Practitioner
DX: Q99.9 Chromosomal abnormality, unspecified (principal); I10 Essential (primary) hypertension; F84.0 Autistic disorder; F41.9 Anxiety disorder, unspecified; Z13.1 Encounter for screening for diabetes mellitus; Z13.220 Encounter for screening for lipoid disorders; Z13.228 Encounter for screening for other metabolic disorders; Z13.29 Encounter for screening for other suspected endocrine disorder; E55.9 Vitamin D deficiency, unspecified; E53.8 Deficiency of other specified B group vitamins
CPT/HCPCS: 36415; 80053; 80061; 82306; 82607; 83036; 84443; 85025